=== PATIENT | male | born 1955 ===

== ENCOUNTER 2021-05-14 05:34 | Emergency (ER) | payer SELFPAY ==
[2021-05-14] MEDS ORDERED: MORPHINE 2 MG/ML SYR ONE (05:50)
[2021-05-14] MEDS ORDERED: NA CHLORIDE 0.9% 1,000 ML ONE (05:50)
[2021-05-14] MEDS ORDERED: ONDANSETRON 4 MG/2 ML VIAL ONE (05:50)
[2021-05-14 05:59] LABS: Absolute Lymphocytes (CBC) 1.7 K/uL (0.7-4.9); Lymphocytes % 14.5 % (15.3-44.8); MPV 8.3 fL (7.6-11.3); RBC Red Blood Cell Count 5.01 M/uL (4.33-5.43)
[2021-05-14] MEDS ORDERED: LACTULOSE 20 GM/30 ML UCUP ONE (06:03)
[2021-05-14 06:06] LABS: Albumin 3.3 g/dL (3.4-5.0); Bilirubin Direct 0.2 mg/dL (0-0.2); Bilirubin Total 0.8 mg/dL (0.2-1.0); Potassium 3.9 mmol/L (3.5-5.1); Protein, Total 7.7 g/dL (6.4-8.2)
[2021-05-14] MEDS ORDERED: CIPROFLOXACIN 400mg IV 400 MG/200 ML BAG IV ONE (06:40)
--- NOTE | 2021-05-14 08:10 | EDPHYS ---
Physician Documentation [facility] Name: Sreedhar Christianson Age: 65 yrs Sex: Male : 1955 Arrival Date: 05/14/2021 Time: 05:35 Bed 7 Private MD: ED Physician Ced Colón HPI: 05/14 05:39 This 65 yrs old Male presents to ER via EMS with complaints of Abdominal Pain.mariza 05:39 The patient presents with abdominal pain in the lower abdomen. Onset: The mariza symptoms/episode began/occurred 3 day(s) ago. The symptoms do not radiate. Associated signs and symptoms: none. The symptoms are described as crampy. Modifying factors: The symptoms are alleviated by nothing, the symptoms are aggravated by nothing. Severity of pain: At its worst the pain was moderate in the emergency department the pain is unchanged. The patient has not experienced similar symptoms in the past. Historical: - Allergies: 05:42 No Known Allergies; mk - Home Meds: 05:42 None [Active]; - Immunization history:: Adult Immunizations up to date. - Family history:: not pertinent. - Social history:: Smoking status: . ROS: 05:39 Constitutional: Negative for fever, chills, and weight loss, Eyes: Negative for injury, mariza pain, redness, and discharge, ENT: Negative for injury, pain, and discharge, Neck: Negative for injury, pain, and swelling, Cardiovascular: Negative for chest pain, palpitations, and edema, Respiratory: Negative for shortness of breath, cough, wheezing, and pleuritic chest pain, Back: Negative for injury and pain, : Negative for injury, bleeding, discharge, and swelling, MS/Extremity: Negative for injury and deformity, Skin: Negative for injury, rash, and discoloration, Neuro: Negative for headache, weakness, numbness, tingling, and seizure, Psych: Negative for depression, anxiety, suicide ideation, homicidal ideation, and hallucinations, Allergy/Immunology: Negative for hives, rash, and allergies, Endocrine: Negative for neck swelling, polydipsia, polyuria, polyphagia, and marked weight changes. 05:39 Abdomen/GI: Positive for abdominal pain, abdominal cramps, of the right lower quadrant and left lower quadrant. Exam: 05:39 Constitutional: This is a well developed, well nourished patient who is awake, alert, mariza and in no acute distress. Head/Face: Normocephalic, atraumatic. Eyes: Pupils equal round and reactive to light, extra-ocular motions intact. Lids and lashes normal. Conjunctiva and sclera are non-icteric and not injected. Cornea within normal limits. Periorbital areas with no swelling, redness, or edema. ENT: Nares patent. No nasal discharge, no septal abnormalities noted. Tympanic membranes are normal and external auditory canals are clear. Oropharynx with no redness, swelling, or masses, exudates, or evidence of obstruction, uvula midline. Mucous membranes moist. Neck: Trachea midline, no thyromegaly or masses palpated, and no cervical lymphadenopathy. Supple, full range of motion without nuchal rigidity, or vertebral point tenderness. No Meningismus. Chest/axilla: Normal chest wall appearance and motion. Nontender with no deformity. No lesions are appreciated. Cardiovascular: Regular rate and rhythm with a normal S1 and S2. No gallops, murmurs, or rubs. Normal PMI, no JVD. No pulse deficits. Respiratory: Lungs have equal breath sounds bilaterally, clear to auscultation and percussion. No rales, rhonchi or wheezes noted. No increased work of breathing, no retractions or nasal flaring. Back: No spinal tenderness. No costovertebral tenderness. Full range of motion. Male : Normal genitalia with no discharge or lesions. Skin: Warm, dry with normal turgor. Normal color with no rashes, no lesions, and no evidence of cellulitis. MS/ Extremity: Pulses equal, no cyanosis. Neurovascular intact. Full, normal range of motion. Neuro: Awake and alert, GCS 15, oriented to person, place, time, and situation. Cranial nerves II-XII grossly intact. Motor strength 5/5 in all extremities. Sensory grossly intact. Cerebellar exam normal. Normal gait. Psych: Awake, alert, with orientation to person, place and time. Behavior, mood, and affect are within normal limits. 05:39 Abdomen/GI: Inspection: abdomen appears normal, Bowel sounds: normal, Palpation: mild abdominal tenderness, in the right lower quadrant and left lower quadrant, Liver: Hernia: not appreciated. Vital Signs: 05:36 BP 147 / 75; Pulse 85; Resp 18; Temp 97.1; Pulse Ox 97% on R/A; mk 06:15 BP 132 / 73; Pulse 79; Resp 18 S; Pulse Ox 96% on R/A; al4 06:45 BP 130 / 68; Pulse 76; Resp 18 S; Pulse Ox 95% on R/A; al4 07:15 BP 116 / 61; Pulse 70; Resp 16; Temp 98.6; Pulse Ox 98% ; Pain 0/10; cb5 09:58 BP 122 / 71; Pulse 65; Resp 16; Temp 98.6; Pulse Ox 97% ; Pain 0/10; cb5 MDM: 05:42 Differential diagnosis: bowel obstruction, diverticulitis, non-specific abd pain, mariza Ureterolithiasis, urinary tract infection. Data reviewed: vital signs, nurses notes, lab test result(s), radiologic studies, CT scan. Data interpreted: telemetry monitor: rhythm is Pulse oximetry: on. 05:42 Patient medically screened. [facility] 05/14 05:39 Order name: Basic Metabolic Panel; Complete Time: 06:25 [facility] 05/14 05:39 Order name: CBC with Diff; Complete Time: 06:25 [facility] 05/14 05:39 Order name: Hepatic Function; Complete Time: 06:25 [facility] 05/14 05:39 Order name: Lipase; Complete Time: 06:25 [facility] 05/14 05:39 Order name: CT Abd/Pelvis - PO and IV Contrast [facility] 05/14 05:39 Order name: IV Saline Lock; Complete Time: 05:43 [facility] 05/14 05:39 Order name: Labs collected and sent; Complete Time: 05:43 [facility] Administered Medications: 05:54 Drug: NS 0.9% 1000 ml Route: IV; Rate: 1 bolus; Site: right antecubital; mk 06:35 Follow up: Response: No adverse reaction; IV Status: Completed infusion; IV Intake: mk 1000ml 05:54 Drug: morphine 2 mg Route: IVP; Site: right antecubital; mk 06:36 Follow up: Response: No adverse reaction; Pain is decreased mk 05:54 Drug: Zofran (Ondansetron) 4 mg Route: IVP; Site: right antecubital; mk 06:35 Follow up: Response: No adverse reaction mk 06:04 Drug: Lactulose 30 grams Volume: 45 ml; Route: PO; mk 06:35 Follow up: Response: No adverse reaction 06:44 Drug: Cipro (ciprofloxacin) 400 mg Volume: 200 ml; Route: IVPB; Infused Over: 60 mins; al4 Site: right antecubital; 09:25 Drug: Flagyl (metroNIDAZOLE) 500 mg Volume: 100 ml; Route: IVPB; Rate: 200 ml/hr; vg1 Infused Over: 30 mins; Site: left antecubital; 09:50 Drug: Rocephin (cefTRIAXone) 2 grams Route: IV; Rate: per protocol; Site: left cb5 antecubital; Disposition Summary: 05/14/21 08:09 Discharge Ordered Location: Home [facility] Problem: new mariza Symptoms: have improved mariza Condition: Stable mariza Diagnosis - Abdominal pain, unspecified mariza - Constipation mariza - Diverticulitis of large intestine without perforation or abscess without bleeding - [facility] Sigmoid Followup: mariza - With: Private Physician - When: 2 - 3 days - Reason: Recheck today's complaints, Continuance of care, Re-evaluation by your physician Followup: mariza - With: - When: 2 - 3 days - Reason: Recheck today's complaints, Re-evaluation by your physician Discharge Instructions: - Discharge Summary Sheet mariza - Abdominal Pain, Adult mariza - Constipation, Adult mariza - Constipation, Adult, [id number] mariza - Diverticulitis mariza - Diverticulitis, [id number] mariza - Abdominal Pain, Adult, [id number] [facility] Forms: - Medication Reconciliation Form mariza - Thank You Letter mariza - Antibiotic Education mariza - Prescription Opioid Use [facility] Prescriptions: - Pepcid 20 mg Oral Tablet - take 1 tablet by ORAL route every 12 hours for 10 days; 20 tablet; Refills: 0, [facility] Product Selection Permitted - dicyclomine 20 mg Oral Tablet - take 1 tablet by ORAL route 4 times per day; 28 tablet; Refills: 0, Product [facility] Selection Permitted - Flagyl 500 mg Oral Tablet - take 1 tablet by ORAL route every 6 hours for 10 days; 40 tablet; Refills: 0, [facility] Product Selection Permitted - Cipro 500 mg Oral Tablet - take 1 tablet by ORAL route every 12 hours for 10 days; 20 tablet; Refills: 0, [facility] Product Selection Permitted Signatures: Dispatcher [employer] Ced Noyola MD MD cha Garcia, Victoria, RN RN vg1 Ericka, Leidy Parker, RN RN mk Dena Corral, RN RN cb5
--- NOTE | 2021-05-14 08:10 | RAD REPORT ---
EXAM DESCRIPTION: CTAbdomen Pelvis W Contrast - 05/14/2021 7:54 am CLINICAL HISTORY: ABD PAIN COMPARISON: <Comparisons> TECHNIQUE: CT of the abdomen and pelvis was performed. All CT scans are performed using dose optimization technique as appropriate and may include automated exposure control or mA/KV adjustment according to patient size. FINDINGS: Lower chest: No acute abnormality. Liver: No acute abnormality or suspicious lesions. Biliary: Cholelithiasis. Stomach: No significant focal abnormality. Duodenum: No significant focal abnormality. Pancreas: No significant abnormality. Spleen: No significant abnormality. Adrenal: No suspicious lesions. Kidney/ureter: No hydronephrosis. No renal calculi. Retroperitoneum: No retroperitoneal adenopathy. Vascular: No aneurysm. Bowel: Thickened sigmoid colon with stranding within the sigmoid mesocolon.. Peritoneum: Trace pelvic free fluid. Small fat containing inguinal hernias. Bladder: Grossly unremarkable. Reproductive: No adnexal masses. Bones: No acute fracture. Degenerative changes are present at L4-5. Other: n/a IMPRESSION: Inflammatory changes and wall thickening at the sigmoid colon likely reflects non perfor ated sigmoid diverticulitis rather than a segmental colitis. Consider follow-up colonoscopy given the degree of thickening.
--- NOTE | 2021-05-14 08:10 | ER ---
Nurse's Notes [facility] Name: Sreedhar Christianson Age: 65 yrs Sex: Male : 1955 Arrival Date: 05/14/2021 Time: 05:35 Bed 7 Private MD: Diagnosis: Abdominal pain, unspecified;Constipation;Diverticulitis of large intestine without perforation or abscess without bleeding-Sigmoid Presentation: 05/14 05:36 Chief complaint: Patient states: C/o pain to bilaterally RLQ and LLQ x3 days and denies mk BM 1.5x days, states last normal BM 3x days ago. Denies blood/vomiting, endorses nausea. Hx UC. Coronavirus screen: Vaccine status: Patient reports being unvaccinated. Ebola Screen: Patient negative for fever greater than or equal to 101.5 degrees Fahrenheit, and additional compatible Ebola Virus Disease symptoms. Initial Sepsis Screen: Does the patient meet any 2 criteria? No. Patient's initial sepsis screen is negative. Does the patient have a suspected source of infection? No. Patient's initial sepsis screen is negative. Risk Assessment: Do you want to hurt yourself or someone else? Patient reports no desire to harm self or others. Onset of symptoms was May 11, 2021. 05:36 Method Of Arrival: EMS: [facility] 05:36 Acuity: DAVY 3 Triage Assessment: 05:39 General: Appears uncomfortable, Behavior is cooperative. Pain: Complains of pain in abdomen Pain currently is 6 out of 10 on a pain scale. Quality of pain is described as aching, sharp, Pain began gradually, 2-3 days ago. Is continuous, intermittent. Neuro: Level of Consciousness is awake, alert, obeys commands. Cardiovascular: Heart tones S1 S2. Respiratory: Airway is patent Trachea midline Respiratory effort is even, unlabored, Respiratory pattern is regular, symmetrical. GI: Abdomen is round Bowel sounds present in right upper quadrant and left upper quadrant diminished in right upper quadrant, left upper quadrant, right lower quadrant and left lower quadrant Abd is soft X 4 quads Abdomen is tender to palpation in right lower quadrant and left lower quadrant. Historical: - Allergies: 05:42 No Known Allergies; - Home Meds: 05:42 None [Active]; - Immunization history:: Adult Immunizations up to date. - Family history:: not pertinent. - Social history:: Smoking status: . Screenin:38 Abuse screen: Denies threats or abuse. Nutritional screening: No deficits noted. mk Tuberculosis screening: No symptoms or risk factors identified. Fall Risk No fall in past 12 months (0 pts). No secondary diagnosis (0 pts). IV access (20 points). Ambulatory Aid- None/Bed Rest/Nurse Assist (0 pts). Gait- Normal/Bed Rest/Wheelchair (0 pts) Mental Status- Oriented to own ability (0 pts). Total Gutierrez Fall Scale indicates No Risk (0-24 pts). Assessment: 06:31 Reassessment: Patient is alert, oriented x 3, equal unlabored respirations, skin mk warm/dry/pink. Patient states feeling better. General:. Neuro: Level of Consciousness is awake, alert, obeys commands, Oriented to person, place, time, situation, Moves all extremities. Speech is normal, Facial symmetry appears normal. Cardiovascular: Heart tones S1 S2 Capillary refill < 3 seconds in bilateral fingers toes JVD is absent Patient's skin is warm and dry. Pulses are 3+ in right radial artery, right dorsalis pedis artery, left radial artery and left dorsalis pedis artery Rhythm is regular. Respiratory: Airway is patent Trachea midline Respiratory effort is even, unlabored, Respiratory pattern is regular, symmetrical, Breath sounds are clear. GI: Abdomen is flat, non-distended, Bowel sounds present in right upper quadrant and left upper quadrant diminished in right lower quadrant and left lower quadrant Abd is soft X 4 quads Abdomen is tender to palpation in right lower quadrant and left lower quadrant Reports lower abdominal pain, constipation, since x3 days. :. Derm: Skin is intact, is healthy with good turgor, Skin is pink, warm \T\ dry. Skin temperature is warm. Musculoskeletal: Circulation, motion, and sensation intact. Capillary refill < 3 seconds, in bilateral fingers. toes. Range of motion: intact in all extremities. 07:10 General: Appears in no apparent distress. comfortable, well groomed, Behavior is calm, cb5 cooperative, appropriate for age. Pain: Denies pain. Neuro: Level of Consciousness is awake, alert, obeys commands, Oriented to person, place, time, situation. Cardiovascular: Heart tones S1 S2 Capillary refill < 3 seconds Patient's skin is warm and dry. Rhythm is sinus rhythm. Respiratory: Airway is patent Trachea midline Respiratory effort is even, unlabored, Respiratory pattern is regular, symmetrical. GI: Abdomen is flat, non-distended, Bowel sounds present X 4 quads. Abd is soft X 4 quads Abdomen is tender to palpation in right upper quadrant Reports constipation. : No deficits noted. Derm: Skin is intact, is healthy with good turgor, Skin is pink, warm \T\ dry. Musculoskeletal: Circulation, motion, and sensation intact. Capillary refill < 3 seconds, in bilateral fingers. toes. Range of motion: intact in all extremities. 07:35 General: pt left ER dept is havinf CT scan done. cb5 08:14 Reassessment: pt up for d/c; awaiting for IV antibiotics to complete. vg1 08:36 General: medication dispensing system isnt available at this time, pharmacy currently cb5 correcting issue. Will provide patient with ordered medication once problem is resolved. M.D. aware.. Vital Signs: 05:36 BP 147 / 75; Pulse 85; Resp 18; Temp 97.1; Pulse Ox 97% on R/A; mk 06:15 BP 132 / 73; Pulse 79; Resp 18 S; Pulse Ox 96% on R/A; al4 06:45 BP 130 / 68; Pulse 76; Resp 18 S; Pulse Ox 95% on R/A; al4 07:15 BP 116 / 61; Pulse 70; Resp 16; Temp 98.6; Pulse Ox 98% ; Pain 0/10; cb5 09:58 BP 122 / 71; Pulse 65; Resp 16; Temp 98.6; Pulse Ox 97% ; Pain 0/10; cb5 ED Course: 05:35 Patient arrived in ED. wm 05:36 Leidy Dong, LV is Primary Nurse. mk 05:37 Ced Colón MD is Attending Physician. mariza 05:38 Triage completed. mk 05:41 Arm band placed on Patient placed in the treatment room. mk 05:41 Patient has correct armband on for positive identification. Placed in gown. Bed in low mk position. Call light in reach. Side rails up X 1. poured wall foreman on. Pulse ox on. NIBP on. 05:43 Basic Metabolic Panel Sent. mk 05:43 CBC with Diff Sent. mk 05:43 Lipase Sent. mk 05:44 Inserted saline lock: 20 gauge in right antecubital area, using aseptic technique. lt3 07:40 Dena Corral, RN is Primary Nurse. cb5 07:54 CT Abd/Pelvis - PO and IV Contrast In Process Unspecified. EDMS 08:08 Keon Lombardi MD is Referral Physician. mariza 09:59 IV discontinued. cb5 09:59 No provider procedures requiring assistance completed. cb5 Administered Medications: 05:54 Drug: NS 0.9% 1000 ml Route: IV; Rate: 1 bolus; Site: right antecubital; mk 06:35 Follow up: Response: No adverse reaction; IV Status: Completed infusion; IV Intake: mk 1000ml 05:54 Drug: morphine 2 mg Route: IVP; Site: right antecubital; mk 06:36 Follow up: Response: No adverse reaction; Pain is decreased mk 05:54 Drug: Zofran (Ondansetron) 4 mg Route: IVP; Site: right antecubital; mk 06:35 Follow up: Response: No adverse reaction mk 06:04 Drug: Lactulose 30 grams Volume: 45 ml; Route: PO; mk 06:35 Follow up: Response: No adverse reaction mk 06:44 Drug: Cipro (ciprofloxacin) 400 mg Volume: 200 ml; Route: IVPB; Infused Over: 60 mins; al4 Site: right antecubital; 09:25 Drug: Flagyl (metroNIDAZOLE) 500 mg Volume: 100 ml; Route: IVPB; Rate: 200 ml/hr; vg1 Infused Over: 30 mins; Site: left antecubital; 09:50 Drug: Rocephin (cefTRIAXone) 2 grams Route: IV; Rate: per protocol; Site: left cb5 antecubital; Intake: 06:35 IV: 1000ml; Total: 1000ml. Outcome: 08:09 Discharge ordered by . mariza 09:59 Discharged to home ambulatory. cb5 09:59 Discharged to 09:59 Condition: stable 09:59 Discharge instructions given to patient. 09:59 Discharge instructions given to 09:59 Patient left the ED. cb5 Signatures: Dispatcher [employer] EDMS Ced Colón MD MD cha Garcia, Victoria, RN RN vg1 Francia Roper Alexis al4 Patricia Ramires lt3 Leidy Dong, RN RN mk Dena Corral, RN RN cb5
[2021-05-14] MEDS ORDERED: CEFTRIAXONE 1000 MG/VIAL ONE (09:15)
[2021-05-14] MEDS ORDERED: METRONIDAZOLE 500mg IVPB 500 MG/100 ML BAG IV ONE (09:15)
[2021-05-14 10:09] VITALS: TEMP 98.6
[2021-05-14 10:10] VITALS: BP 122/71; O2SAT 97
== END 2021-05-14 09:59 | disposition home or self-care (01) ==
LOC: ER 05:34
DX: K59.00 Constipation, unspecified (principal); K57.32 Diverticulitis of large intestine without perforation or abscess without bleeding
CPT/HCPCS: 36415; 74177; 80048; 80076; 83690; 85025; 99284; J0744; J2270; J2405; J7030; Q9967